=== PATIENT | female | born 1970 | race Caucasian/White ===

== ENCOUNTER 2018-01-08 21:12 | Emergency (ER) | payer SELFPAY ==
[~2018-01-08] VITALS: Ht 170.2 cm; Wt 68.0 kg
--- NOTE | 2018-01-08 21:13 | NUR ---
CALLED FOR TRIAGE; NOT IN LOBBY
[2018-01-08 21:40] VITALS: BP 122/84
[2018-01-08] MEDS ORDERED: IBUPROFEN 400 MG TABLET ONE (22:09)
[2018-01-08] MEDS ORDERED: IBUPROFEN 400 MG TABLET PO ONE (22:30)
== END 2018-01-08 22:16 | disposition home or self-care (01) ==
LOC: ER 21:12
DX: T63.301A Toxic effect of unspecified spider venom, accidental (unintentional), initial encounter (principal); L08.9 Local infection of the skin and subcutaneous tissue, unspecified; F17.200 Nicotine dependence, unspecified, uncomplicated; Y92.89 Other specified places as the place of occurrence of the external cause
CPT/HCPCS: A4606; Z7610

== ENCOUNTER 2018-01-14 20:02 | Emergency (ER) | payer SELFPAY ==
[~2018-01-14] VITALS: Ht 170.2 cm; Wt 77.1 kg
[2018-01-14 20:23] VITALS: BP 146/88
== END 2018-01-14 22:13 | disposition home or self-care (01) ==
LOC: ER 20:04
DX: L02.31 Cutaneous abscess of buttock (principal)
CPT/HCPCS: 99283; A4606; Z7610